=== PATIENT | female | born 1985 | race Caucasian/White ===

== ENCOUNTER 2019-07-07 11:02 | Emergency (ER) | payer SELFPAY ==
[2019-07-07] MEDS ORDERED: DEXAMETHASONE SOD PHOSPHATE 10MG/ML 1ML VIAL ONE (12:14)
== END 2019-07-07 12:20 | disposition home or self-care (01) ==
LOC: EDH 11:02
DX: J20.9 Acute bronchitis, unspecified (principal)
CPT/HCPCS: 71046; 96372; 99284; J1100